=== PATIENT | male | born 1950 | race Caucasian/White ===

== ENCOUNTER 2024-06-27 18:00 | Emergency (ER) | payer OTHER ==
[~2024-06-27] VITALS: Ht 170.2 cm; Wt 71.6 kg
[2024-06-27 18:08] VITALS: O2SAT 98
[2024-06-27] MEDS: CYCLOBENZAPRINE 10MG TABLET PO STA (19:47)
[2024-06-27] MEDS ORDERED: [UNRECOGNIZED DRUG - CODE] TP (19:51)
[2024-06-27] MEDS ORDERED: CYCL10TA21 MT (19:51)
[2024-06-27 20:13] VITALS: BP 125/66; PULSE 98; RESP 16; TEMP 36.50292; O2SAT 98
== END 2024-06-27 20:14 | disposition home or self-care (01) ==
LOC: ER 18:00
DX: M54.2 Cervicalgia (principal); V43.52XA Car driver injured in collision with other type car in traffic accident, initial encounter; Y93.89 Activity, other specified; Y92.89 Other specified places as the place of occurrence of the external cause; Y99.8 Other external cause status
CPT/HCPCS: 99283